=== PATIENT | male | born 1950 | race Caucasian/White ===

== ENCOUNTER → 2016-08-07 | Outpatient (CLI) | payer OTHER, BC ==
[~2016-08-07] MED LIST: ALEVE220 M1 PO; ALEVE220 MG PO; ASPIR 8181 MG PO; BACTRIM DS TAB1 EACH PO; CATAPRES-TTS 10.1 MG; CLONIDINE0.1 PO; COLACE100 MG PO; COUMADIN PO; CYCLOBENZAPRINE10 MG PO; FISH OIL 1,001000 M2 PO; HYDROCODON-ACE1 EAC7 PO; IRBESARTAN-HCT1 EAC1 PO; LISINOPRIL10 MG PO; LISINOPRIL20 MG PO; LORTAB 7.5/5001 TA3 PO; NOHOMEMEDICATIONS; PERCOCET 10-321 EACH PO; XARELTO10 MG PO; [UNRECOGNIZED DRUG - OTHER] TOP
[2016-08-07 10:44] LABS: CREATININE 1.5 mg/dL (0.7-1.3)
== END ==
LOC: MRI 09:52 → LAB 11:57
PROVIDERS: Family Medicine
DX: M47.816 Spondylosis without myelopathy or radiculopathy, lumbar region (principal); M48.06 Spinal stenosis, lumbar region

== ENCOUNTER → 2016-08-25 | Outpatient (CLI) | payer OTHER, BC ==
[~2016-08-25] VITALS: Ht 177.8 cm; Wt 127.0 kg
--- NOTE | ~2016-08-25 | HPC ---
[facility] [address] [place] [address] PAIN MANAGEMENT CONSULTATION Name: MARSHALL MARQUEZ [facility].#: [id number] Admission: 08/25/16 Attend Phys: Carl Munoz DO Discharge: Date of : 46 Report #: [id number] THIS REPORT FOR: //name// CC: Brandin Munoz The patient is a pleasant 65-year-old gentleman seen in consultation at request of Dr. Thakkar for assistance with management of pain in the left hip, gluteus and low back. The patient notes the pain specifically exacerbated with rotational movements such as playing golf. He has tried conservative therapy including Medrol Dosepak with nominal efficacy. The patient had had a prior decompressive laminectomy on 12/30/2015 (right L3-L4 laminectomy and facetectomy). This resulted in a very good relief of his prior symptoms, which were primarily neurogenic claudication with numbness in his feet with standing. He notes current pain is vastly different. Notes continuous, steady, constant, burning, stabbing pain, rates anywhere from 3-10 on a 0-10 visual analog scale, again primarily left hip and gluteus. REVIEW OF SYSTEMS: A complete review of systems was attached to chart and gone over with the patient. He is , seen in the company of his who is supportive. He does not smoke, drink alcohol to excess. He is enjoyed a reasonably in good health, has hypertension for which he takes irbesartan and hydrochlorothiazide, does take a baby aspirin daily. He has had bilateral total knee arthroplasties and the aforementioned back surgery last year. Works supervisor assembly department in sales. Pain impact score is quite low. PHYSICAL EXAMINATION: He is a fairly stocky gentleman, 5 feet 10 inches, 280 pounds with a BMI of 40.2 kg/m2. Blood pressure is 153/102, pulse 75, and respirations 16. Cranial nerves 2-12 are grossly intact. Pupils are equal, reactive to light and accommodation. Extraocular muscles are intact, though he does have a little lateral gaze nystagmus. Thyroid is enlarged, no nodules are noted. Upper extremity strength is preserved. Heart is regular rhythmical without murmur. Lungs are clear to auscultation. Abdomen shows an endomorphic build. Rises from chair using armrest. Gait is tandem. He does have point tenderness of the left SI. Lower extremity strength is symmetric. Straight leg raise is negative. Patellar and Achilles reflexes are symmetric, difficult to elicit patellar reflexes. Achilles reflex is 0-1/4. Positive Eli test on the left. Negative piriformis exam. DIAGNOSTIC STUDIES: Include MRI of the lumbar spine from 08/07/2016, noting prior right hemilaminectomy at L3-L4, neural foraminal narrowing, left greater than right at L4-L5, though current symptoms do not really correlate with specific radicular findings. ASSESSMENT: Symptomatic sacroiliac joint dysfunction in a moderately obese [address] [address] PAIN MANAGEMENT CONSULTATION Name: MARSHALL MARQUEZ Room #: LEANNE Diaz#: [id number] Admission: 08/25/16 Attend Phys: Carl Munoz DO Discharge: Date of : 46 Report #: [id number] gentleman with body mass index greater than 40 kg/m2, status post lumbar decompressive laminectomy. RECOMMENDATION: Fluoroscopic guided left SI joint injection today. Core strengthening exercises. Follow up in 2-3 weeks for reevaluation, consideration for transforaminal epidural injection if indicated clinically for radicular symptoms at that time. Thank you for allowing me to participate in the patient's care. I will keep you abreast of his progress. PROCEDURE NOTE: Left SI joint injection under fluoroscopy. PROCEDURE: After written informed consent was obtained, the patient was taken to the fluoroscopy suite and placed in prone position. After sterile prep and drape, skin wheal was raised. A 22-gauge stylet needle was placed to contact the inferior aspect of the left SI joint. Negative aspiration was accomplished. 40 mg of triamcinolone plus 2 mL of 0.5% preservative-free bupivacaine was injected. (No iodine was used secondary to the patient's SHELLFISH allergy). Needle was removed, the area was cleansed, and Band-Aids applied. The patient was monitored for an appropriate period of time, discharged in good and stable condition. <ELECTRONICALLY SIGNED> By: Carl Munoz DO 08/28/16 1538 [id number] 1612 Carl Munoz DO /nt
[2016-08-25 10:48] VITALS: BP 153/102
== END | disposition home or self-care (01) ==
LOC: PAIN 06:50
DX: M53.3 Sacrococcygeal disorders, not elsewhere classified (principal); E66.01 Morbid (severe) obesity due to excess calories; Z68.41 Body mass index [BMI] 40.0-44.9, adult

== ENCOUNTER → 2017-05-18 | Outpatient (CLI) | payer OTHER, BC ==
[~2017-05-18] VITALS: Ht 177.8 cm; Wt 126.1 kg
[~2017-05-18] MED LIST changes: -IRBESARTAN-HCT1 EAC1 PO; +IRBESARTAN-HCT1 EACH PO
--- NOTE | ~2017-05-18 | HPC ---
[facility] [place] [place] [address] [place] [address] PAIN MANAGEMENT CONSULTATION Name: MARSHALL MARQUEZ Room #: REG CL MRidge.#: [id number] Admission: 05/18/17 Attend Phys: Carl Munoz DO Discharge: Date of : 46 Report #: [id number] THIS REPORT FOR: //name// CC: Brandin Munoz DATE OF SERVICE: 05/18/2017 HISTORY OF PRESENT ILLNESS: The patient is a 66-year-old gentleman, prior seen in consultation on 08/25/2016. We did a left SI joint injection with near 100% improvement in baseline pain. He was somewhat lost to follow up, presents to pain clinic today with a new complaint. He notes that the SI joint injection afforded a good relief. He has a new pain in the left low back down the leg, which he describes as a "pinched" in the left hip radiating down the lateral thigh into the calf. The lateral toes feel somewhat numb. He has taken Advil with dwindling efficacy. He notes pain as constant, aching. Feels like the toes are asleep in the outside of the left foot. He rates the pain as a 7-8 on a VAS. Pain is exacerbated with standing and pretty much any activity. He gets some relief with distraction, heat and Advil p.r.n. PHYSICAL EXAMINATION: GENERAL: Shows a 66-year-old gentleman, BMI is 39.9 kilograms per meter squared. VITAL SIGNS: Blood pressure is quite elevated today at 173/103, pulse 87. In the recovery room, blood pressure came down somewhat 162/105. Pulse in the 60s. NEUROLOGIC: He is alert and oriented to person, place and time, judged to be a reasonable historian. MUSCULOSKELETAL: Rises from chair using the armrest. Diffuse tenderness across the low back. Slight decreased left lower extremity flexion strength. Positive straight leg raise on the left. Diffuse axial back pain, no discrete trigger points noted. Subjective paresthesia in the left foot and leg. IMAGING: Reviewed diagnostic findings including MRI from 08/07/2016 noting neural foraminal narrowing on the left side at L4-L5. He is status post left L3-L4 hemilaminectomy. ASSESSMENT: Symptomatic lumbar radiculopathy in a gentleman status post decompressive laminectomy, prior treated for sacroiliac joint dysfunction with moderate obesity. RECOMMENDATIONS: After discussion with the patient today, we elected to move forward with epidural injection under fluoroscopy today at L3-L4, left to midline. If this does not afford adequate relief, we will trial a left L4-L5 transforaminal epidural injection at next visit. Thank you for allowing me to participate in the patient's care. [address] [address] PAIN MANAGEMENT CONSULTATION Name: ALMAMARSHALL LAMB Room #: REG CLBryce Diaz#: [id number] Admission: 05/18/17 Attend Phys: Carl Munoz DO Discharge: Date of : 46 Report #: [id number] PROCEDURE: Lumbar epidural injection under fluoroscopy. PROCEDURE NOTE: After both written and informed consent to include risk of spinal cord damage, increased pain, weakness and dural puncture, the patient was taken to the fluoroscopy suite, placed in the prone position. After sterile prep and drape, a skin wheal with lidocaine was raised. A 22-gauge epidural Tuohy needle was inserted in the midline at L3-L4 with good loss to resistance. Negative aspiration for cerebrospinal fluid or blood was noted. Then 1 mL of Omnipaque under biplanar fluoroscopy showed good spread within the epidural space. This was followed with 80 mg of triamcinolone plus 1 mL of 1.5% preservative-free Xylocaine, 0.5 mL Xylocaine was then injected to flush the needle; it was removed. The patient was monitored for an appropriate period of time and discharged in good and stable condition. <ELECTRONICALLY SIGNED> By: Carl Munoz DO 05/21/17 0911 1623 0026 Carl Munoz DO /nt
[2017-05-18 10:27] VITALS: BP 173/103
== END | disposition home or self-care (01) ==
LOC: PAIN 09-25 07:29
DX: M54.16 Radiculopathy, lumbar region (principal); M53.3 Sacrococcygeal disorders, not elsewhere classified; E66.01 Morbid (severe) obesity due to excess calories; Z68.39 Body mass index [BMI] 39.0-39.9, adult; Z79.82 Long term (current) use of aspirin; Z98.890 Other specified postprocedural states; Z79.899 Other long term (current) drug therapy

== ENCOUNTER → 2017-06-08 | Outpatient (CLI) | payer OTHER, BC ==
[~2017-06-08] VITALS: Ht 180.3 cm; Wt 122.5 kg
--- NOTE | ~2017-06-08 | HPC ---
[facility] [place] [address] PAIN MANAGEMENT CONSULTATION Name: MARSHALL MARQUEZ Room #: REG CL M..#: [id number] Admission: 06/08/17 Attend Phys: Carl Munoz DO Discharge: Date of : 46 Report #: [id number] THIS REPORT FOR: //name// CC: Brandin Munoz The patient is a 66-year-old gentleman, prior seen in the pain clinic 05/18/2017, diagnosed with symptomatic lumbar radiculopathy. Proceeded with epidural injection at L3-L4 at that time. He returns to pain clinic today noting that the interventional therapy afforded good relief. The patient specifically notes 90% ongoing. He prior had SI joint injection back in August, which had helped as well. He notes still has some paresthesia and weakness in the left lower extremity. Rates his pain only a 1 on VAS, but states that there is a constant "numb" sensation in the lateral aspect of the left leg and down to the toes. He notes symptoms seemed to be exacerbated with activity including standing. PHYSICAL EXAMINATION: Shows 66-year-old gentleman, BMI is 37.7 kilograms per meter squared. Vital signs show modest hypertension 142/96, pulse 82. He is not a fall risk. He is hypertensive, medicine list was reconciled. Does not use chronic opiates. Opiate risk assessment tool score is low and in fact functional assessment tool is quite low as well . Rises from chair using armrest. Gait is tandem. Lower extremity strength is preserved. Subjective paresthesia in the lateral aspect of the left lower leg. Otherwise, symptoms are fairly unremarkable. I reviewed the patient's diagnostic findings, he is status post right hemilaminectomy at L3-L4. Symptoms are more in the left L4 pattern, and again the MRI from 08/07/2016 does note L4-L5 to have significant neural foraminal narrowing, left greater than right. ASSESSMENT: Symptomatic lumbar radiculopathy on clinical exam and history in a gentleman with status post lumbar decompressive laminectomy at the L3-L4 level. He has left L4 radicular pain at this time. RECOMMENDATION: Continue range of motion, physical therapy and exercise. Follow up with the pain clinic if paresthesia continues and/or pain recurs. Thanks for allowing me to participate in the patient's care. I am pleased to report at present, he really does not warrant further interventional therapy. He is hypertensive and is treated with a selective angiotensin 2 receptor antagonist. NSAID agents are relatively contraindicated. <ELECTRONICALLY SIGNED> By: Carl Munoz DO 06/11/17 0715 1200 1812 Carl Munoz DO /nt
[2017-06-08 11:02] VITALS: BP 142/96
== END ==
LOC: PAIN 07:07
DX: M54.16 Radiculopathy, lumbar region (principal); Z98.890 Other specified postprocedural states

== ENCOUNTER → 2017-06-22 | Outpatient (CLI) | payer OTHER, BC ==
[~2017-06-22] VITALS: Ht 177.8 cm; Wt 127.5 kg
--- NOTE | ~2017-06-22 | HPC ---
[facility] [place] [address] PAIN MANAGEMENT CONSULTATION Name: MARSHALL MARQUEZ Room #: REG CL M..#: [id number] Admission: 06/22/17 Attend Phys: Carl Munoz DO Discharge: Date of : 46 Report #: [id number] THIS REPORT FOR: //name// CC: Brandin Munoz DATE OF SERVICE: 06/22/2017 INDICATION: Symptomatic lumbar radiculopathy status post right L3-L4 mini laminectomy back in 12/2015. Last seen in the pain clinic on 06/08/2017. He was doing well at that time. We elected to postpone interventional therapy. Returns to pain clinic today noting that he still has paresthesia in the right L4 distribution. Feels like his toes are asleep. PHYSICAL EXAMINATION: Shows a 66-year-old gentleman, BMI is 40.3 kilograms per meter squared. Strength is good. Gait is tandem. He is hypertensive with a blood pressure of 164/106, pulse 80, respiration 16. Subjective paresthesia in the right L4 distribution. We elected to repeat right L4-L5 transforaminal epidural injection today. Continue range of motion activity. Follow up simply as needed. ASSESSMENT: Symptomatic lumbar radiculopathy status post decompressive laminectomy. PROCEDURE: Transforaminal lumbar epidural injection under fluoroscopy. PROCEDURE NOTE: After both written and informed consent was obtained including risk of spinal cord damage, infection, increased pain and paralysis, the patient agreed to proceed. The patient was taken to the fluoroscopy suite, placed in a prone position with appropriate abdominal bolstering. After sterile prep with ChloraPrep and sterile drape, a skin wheal with 1% Xylocaine was raised. A 22 gauge 4-1/2 inch epidural Tuohy needle was inserted. From an oblique approach into the posterior-superior aspect of the left L4-L5 neural foramen with continuous pressure on the glass syringe plunger for loss of resistance. Glass syringe was filled with 2 cc of 0.1 Xylocaine. The glass loss of resistance syringe was removed. A low volume extension tubing was connected, negative aspiration was accomplished for cerebrospinal fluid or blood. 1 mL of Omnipaque was injected which showed spread both within the epidural space and laterally along the nerve root. This was followed with 80 mg of triamcinolone plus 1 mL of 1.5% preservative-free Xylocaine. Needle was partially withdrawn, 0.5 mL of Xylocaine was injected to clear the needle and the needle was removed. [facility] [address] [place] [address] PAIN MANAGEMENT CONSULTATION Name: MARSHALL MARQUEZ Room #: REG CLI [facility].#: [id number] Admission: 06/22/17 Attend Phys: Carl Munoz DO Discharge: Date of : 46 Report #: [id number] was cleansed, band-aid was applied. The patient was allowed to ambulate to the recovery room, discharged in good and stable condition. <ELECTRONICALLY SIGNED> By: Carl Munoz DO 06/27/17 0725 1602 0047 Carl Munoz DO /nt
[2017-06-22 10:38] VITALS: BP 164/106
== END ==
LOC: PAIN 07:21
DX: M54.16 Radiculopathy, lumbar region (principal); Z68.41 Body mass index [BMI] 40.0-44.9, adult